=== PATIENT | female | born 1945 | race Caucasian/White ===

== ENCOUNTER 2017-09-26 08:25 | Emergency (ER) | END 2017-09-26 16:30 | disposition home or self-care (01) ==

== ENCOUNTER 2019-03-06 05:39 | Inpatient (IN) | payer OTHER ==
[~2019-03-06] VITALS: Ht 154.9 cm; Wt 78.4 kg
[2019-03-06] VITALS (30 sets, daily range): BP systolic 92–141; BP diastolic 36–69; PULSE 62–88; RESP 13–27; Ht 154.9 cm; Wt 78.4 kg
[~2019-03-06 05:39] MED LIST: ALEN70TA5 PO; ASPI81TA52 PO; ATOR20TA38 PO; ENAL5TAB PO; HYDR12.58 PO; LEVO125T71 PO; LEVO50TA7 PO; LISI10TA2 PO; LOSA50TA14 PO; OMEP20CA17 PO; POLY17PO6 PO
[2019-03-06] MEDS ORDERED: ACETAMINOPHEN 500 MG TAB PO ONE (06:30)
[2019-03-06] MEDS ORDERED: oxyCODONE (CR) 10 MG TAB [oxyCONTIN] PO ONE (06:30)
[2019-03-06] MEDS ORDERED: ONDANSETRON 4 MG INJ IV ONE (06:30)
[2019-03-06] MEDS ORDERED: TRANEXAMIC ACID 1GM/100ML(PMX) 100 ML PRE-OP X1 IVPB ONE (06:30)
[2019-03-06] MEDS ORDERED: CEFAZOLIN 1 GM/50 ML (PMX) 50 ML IVPB ONE (06:30)
[2019-03-06] MEDS ORDERED: LANSOPRAZOLE 30 MG CAP PO ONE (06:30)
[2019-03-06] MEDS ORDERED: DEXAMETHASONE 4 MG/ML 1 ML INJ IV ONE (06:30)
[2019-03-06] MEDS: LACTATED RINGER'S 1,000 ML IV SCH ×2 (06:38→18:08)
[2019-03-06] MEDS ORDERED: POLYMYXIN B 500000 UNIT INJ ONE (06:57)
[2019-03-06] MEDS ORDERED: TRANEXAMIC ACID 1GM/100ML(PMX) 100 ML ONE ×2 (06:58)
[2019-03-06] MEDS ORDERED: PAIN COCKTAIL VANCO INJ SCH ×7 (07:00)
[2019-03-06] MEDS ORDERED: morphine SULFATE/PF (10 MG/10 ML) INJ ONE (07:23)
[2019-03-06] MEDS ORDERED: MIDAZOLAM 1 MG/ML 2 ML INJ ONE (07:23)
[2019-03-06] MEDS ORDERED: ROPIVACAINE 0.5 % 30 ML VIAL ONE (07:23)
[2019-03-06] MEDS ORDERED: CEFAZOLIN 1 GM INJ ONE ×2 (07:23→08:05)
[2019-03-06] MEDS ORDERED: ONDANSETRON 4 MG INJ ONE (08:05)
[2019-03-06] MEDS ORDERED: SUCCINYLCHOLINE CHLORIDE 100 MG/5 ML SYG IV ONE (08:05)
[2019-03-06] MEDS ORDERED: METOCLOPRAMIDE 10 MG INJ ONE (08:05)
[2019-03-06] MEDS ORDERED: PROPOFOL 100 ML ONE (08:05)
[2019-03-06] MEDS ORDERED: DEXAMETHASONE 4 MG/ML 5 ML INJ ONE (08:06)
[2019-03-06] MEDS ORDERED: HETASTARCH 6% NACL 500 ML ONE (08:11)
[2019-03-06] MEDS ORDERED: BACITRACIN 50000 UNITS INJ IRR ONE (08:17)
[2019-03-06] MEDS: TRANEXAMIC ACID 1GM/100ML(PMX) 100 ML INTRA-OP X1 IVPB ONE ×2 (08:19→08:56)
[2019-03-06] MEDS ORDERED: EPHEDrine 25 MG/5 ML SYG ONE (08:42)
[2019-03-06] MEDS ORDERED: hydrALAzine 20 MG INJ IV PRN (09:00)
[2019-03-06] MEDS ORDERED: HYDROCODONE/APAP (5/325) TAB PO PRN (09:00)
[2019-03-06] MEDS ORDERED: NALBUPHINE HCL (10 MG/1 ML) INJ IV PRN (09:00)
[2019-03-06] MEDS ORDERED: HYDROmorphONE 1 MG/5 ML IV SYRINGE IV PRN ×2 (09:00)
[2019-03-06] MEDS ORDERED: EPHEDrine 25 MG/5 ML SYG IV PRN (09:00)
[2019-03-06] MEDS ORDERED: NALOXONE (0.4 MG/ML) INJ IV PRN ×2 (09:00→10:00)
[2019-03-06] MEDS ORDERED: OXYCODONE/ACETAMINOPHEN (5/325) TAB PO PRN (09:00)
[2019-03-06] MEDS ORDERED: ONDANSETRON 4 MG INJ IV PRN ×2 (09:00)
[2019-03-06] MEDS ORDERED: MEPERIDINE 25 MG INJ IV PRN (09:00)
[2019-03-06] MEDS ORDERED: FENTAnyl 50 MCG/ML VIAL IV PRN ×2 (09:00)
[2019-03-06] MEDS ORDERED: morphine 2 MG INJ IV PRN ×2 (09:00)
[2019-03-06] MEDS ORDERED: HYDROmorphONE 0.5 MG/0.5 ML SYG IV PRN ×2 (09:00)
[2019-03-06] MEDS ORDERED: METOCLOPRAMIDE 10 MG INJ IV PRN (09:00)
[2019-03-06] MEDS ORDERED: LABETALOL HCL 20MG INJ IV PRN (09:00)
[2019-03-06] MEDS ORDERED: DIPHENHYDRAMINE 50 MG INJ IV PRN ×2 (09:00)
[2019-03-06] MEDS ORDERED: ACETAMINOPHEN 500 MG TAB PO PRN (09:00)
[2019-03-06] MEDS ORDERED: PHENYLephrine (100 MCG/ML) 10ML SYG ONE (09:23)
[2019-03-06] MEDS ORDERED: NACL 0.9% 3 ML SYG IV SCH (10:00)
[2019-03-06] MEDS ORDERED: BISACODYL 10 MG SUPP PR PRN (10:00)
[2019-03-06] MEDS ORDERED: NA PHOSPHATE/BIPHOS 133 ML ENEMA PR PRN (10:00)
[2019-03-06] MEDS ORDERED: MAGNESIUM HYDROXIDE 30ML CUP PO PRN (10:00)
[2019-03-06] MEDS ORDERED: DOCUSATE SODIUM 100 MG CAP PO ONE (10:00)
[2019-03-06] MEDS ORDERED: SENNA/DOCUSATE NA (8.6MG/50MG) TAB PO PRN (10:00)
[2019-03-06] MEDS: ONDANSETRON 4 MG INJ IV SCH ×3 (10:50→22:47)
[2019-03-06] MEDS: CEFAZOLIN 2 GM/50 ML (PMX) 50 ML IVPB SCH ×2 (10:50→18:38)
[2019-03-06] MEDS: GABAPENTIN 100 MG CAP PO SCH ×2 (13:30→22:01)
[2019-03-06] MEDS: ATORVASTATIN 20 MG TAB PO SCH (22:01)
[2019-03-07 00:22] VITALS: BP 126/72; PULSE 75; RESP 20
[2019-03-07] MEDS: CEFAZOLIN 2 GM/50 ML (PMX) 50 ML IVPB SCH (02:18)
[2019-03-07] MEDS: ONDANSETRON 4 MG INJ IV SCH (04:12)
[2019-03-07] MEDS: PANTOPRAZOLE (EC) 40 MG TAB PO SCH (06:19)
[2019-03-07] MEDS: LEVOTHYROXINE 125 MCG TAB PO SCH (06:19)
[2019-03-07 08:02] VITALS: BP 100/51; PULSE 65; RESP 20
[2019-03-07] MEDS: ASPIRIN (EC) 81 MG TAB PO SCH ×2 (08:51→20:18)
[2019-03-07] MEDS: GABAPENTIN 100 MG CAP PO SCH ×3 (08:51→20:18)
[2019-03-07] MEDS: DOCUSATE SODIUM 100 MG CAP PO SCH ×2 (08:52→20:18)
[2019-03-07] MEDS: CELECOXIB 100 MG CAP PO SCH ×2 (08:52→20:18)
[2019-03-07] MEDS: oxyCODONE 5 MG TAB PO PRN (08:53)
[2019-03-07] MEDS: HYDROCHLOROTHIAZIDE 12.5 MG CAP PO SCH (08:56)
[2019-03-07 13:11] VITALS: BP 108/53; PULSE 66
[2019-03-07] MEDS: LOSARTAN 50 MG TAB PO SCH (13:12)
[2019-03-07] MEDS: LISINOPRIL 10 MG TAB PO SCH (13:12)
[2019-03-07] MEDS: KETOROLAC 15 MG INJ IV PRN (14:39)
[2019-03-07 15:23] VITALS: BP 107/53; PULSE 64; RESP 20
[2019-03-07 19:15] VITALS: BP 96/46; PULSE 65; RESP 18
[2019-03-07] MEDS: ATORVASTATIN 20 MG TAB PO SCH (20:18)
[2019-03-08 02:04] VITALS: BP 90/49; PULSE 55; RESP 18
[2019-03-08 04:32] VITALS: BP 101/65; PULSE 62; RESP 20
[2019-03-08] MEDS: LEVOTHYROXINE 125 MCG TAB PO SCH ×2 (05:21→08:51)
[2019-03-08] MEDS: PANTOPRAZOLE (EC) 40 MG TAB PO SCH (05:21)
[2019-03-08] MEDS: KETOROLAC 15 MG INJ IV PRN (05:25)
[2019-03-08] MEDS ORDERED: PANTOPRAZOLE (EC) 40 MG TAB PO SCH (06:00)
[2019-03-08 08:24] VITALS: BP 104/53; PULSE 54; RESP 19
[2019-03-08] MEDS: ASPIRIN (EC) 81 MG TAB PO SCH (08:51)
[2019-03-08] MEDS: CELECOXIB 100 MG CAP PO SCH (08:51)
[2019-03-08] MEDS: GABAPENTIN 100 MG CAP PO SCH ×2 (08:51→12:56)
[2019-03-08] MEDS: DOCUSATE SODIUM 100 MG CAP PO SCH (08:51)
[2019-03-08] MEDS: LISINOPRIL 10 MG TAB PO SCH (08:53)
[2019-03-08] MEDS: LOSARTAN 50 MG TAB PO SCH (08:54)
[2019-03-08] MEDS: HYDROCHLOROTHIAZIDE 12.5 MG CAP PO SCH (08:55)
[2019-03-08] MEDS: oxyCODONE 5 MG TAB PO PRN (12:56)
== END 2019-03-08 17:45 | DRG 470 ==
LOC: REC 05:39 → EDSTATUS 07:30 → MS1 11:22
PROVIDERS: ADMIT Orthopaedic Surgery Adult Reconstructive Orthopaedic Surgery; ATTEND Orthopaedic Surgery Adult Reconstructive Orthopaedic Surgery
PROC: 0SRD0J9 Replacement of Left Knee Joint with Synthetic Substitute, Cemented, Open Approach (ICD-10-PCS; principal; 2019-03-06 07:30)
DX: M17.12 Unilateral primary osteoarthritis, left knee (principal); E66.9 Obesity, unspecified; I10 Essential (primary) hypertension; E78.5 Hyperlipidemia, unspecified; E03.9 Hypothyroidism, unspecified; I25.10 Atherosclerotic heart disease of native coronary artery without angina pectoris
CPT/HCPCS: 73560; 80048; 80053; 80061; 83036; 84436; 84443; 84479; 85025; 88304; 88311; 97116; 97162; 97530; C1713; C1776; J0171; J0690; J0735; J1100; J1885; J2250; J2274; J2370; J2405; J2765; J2795; J3370; J7120